=== PATIENT | male | born 1950 | race Caucasian/White ===

== ENCOUNTER 2019-04-02 10:42 | Emergency (ER) | payer OTHER, MEDICARE ==
[~2019-04-02] VITALS: Ht 185.4 cm; Wt 99.8 kg
[2019-04-02 10:42] VITALS: BP_SYST 135
--- NOTE | 2019-04-02 10:42 | NUR ---
BROUGHT BACK TO BED #3 AND TRIAGED. REPORT GIVEN TO NAM
--- NOTE | 2019-04-02 10:43 | NUR ---
Pt here for c/o feeling pressure when he urinates, denied pain upon urination, denied flank pain or fever. Pt ambulates with steady gait, no acute distress noted.
--- NOTE | 2019-04-02 10:45 | NUR ---
Dr. Bernal at bedside to assess pt.
[2019-04-02 11:40] LABS: BILIRUBIN,URINE NEGATIVE (NEGATIVE); BLOOD, URINE 3+ (NEGATIVE); CLARITY/URINE HAZY (CLEAR); COLOR,URINE YELLOW (YELLOW); GLUCOSE,URINE NEGATIVE (NEGATIVE); KETONES,URINE NEGATIVE (NEGATIVE); LEUKOCYTE ESTERASE ,URINE 3+ (NEGATIVE); NITRITE, URINE POSITIVE (NEGATIVE); PH,URINE 6.5 (5.0-8.0); PROTEIN URINE 2+ (NEGATIVE)
[2019-04-02 11:48] LABS: BACTERIA,URINE MANY /HPF (None Seen); WBC,URINE >100 /HPF (0-3)
--- NOTE | 2019-04-02 12:25 | NUR ---
Patient given written and verbal discharge instructions and verbalizes understanding. ER MD discussed with patient the results and treatment provided. Patient in stable condition. ID arm band removed. IV catheter removed intact and dressing applied, no active bleeding. Rx of Doxycycline 100mg given. Opportunity for questions provided and answered. Medication side effect fact sheet provided.
[2019-04-02 12:58] VITALS: BP_SYST 140
--- NOTE | 2019-04-04 17:51 | NUR ---
RECEIVED +URINE CULTURE FROM LABORATORY AND DISCUSSED CASE WITH DR KENDRICK. DR KENDRICK SPOKE WITH PT AND WILL BE CALLING IN NEW SCRIPT TO [facility] [address]
--- NOTE | 2019-04-04 18:10 | NUR ---
CIPRO 500MG BID PO, CALLED TO [facility] [phone]
== END 2019-04-02 12:25 | disposition home or self-care (01) ==
LOC: SED 10:42
DX: N39.0 Urinary tract infection, site not specified (principal); Z88.1 Allergy status to other antibiotic agents
CPT/HCPCS: 81000-TC; 87086; 87186-TC; 99283